=== PATIENT | female | born 1990 | race Hispanic/Latino ===

== ENCOUNTER 2020-01-03 12:09 | Day surgery (SDC) | payer BC ==
[2020-01-03 12:41] VITALS: BMI 48.7
[2020-01-03 12:46] VITALS: BP 133/86; TEMP 98.5
[2020-01-03] MEDS ORDERED: hydrALAZINE 20 MG/ML VIAL SLOW IVP PRN (12:56)
[2020-01-03 13:24] LABS: #Eosinphils 0.1 thou/uL (0.0-0.7); #Lymphocytes 2.5 thou/uL (1.20-3.40); #Monocytes 0.6 thou/uL (0.11-0.59); #Neutrophils 7.9 thou/uL (1.40-6.50); %Basophils 0.4 % (0.0-1.0); %Eosinophils 0.8 % (0.0-10.0); %Lymphocytes 22.4 % (21.0-51.0); %Monocytes 5.5 % (0.0-10.0); %Neutrophils 70.9 % (42.0-75.0); Hemoglobin 12.7 g/dL (12.0-16.0); Mean Corpuscular HGB CONC 33.8 g/dL (32.0-36.0); Mean Corpuscular Hemoglobin 29.5 pg (27.0-31.0); Mean Platelet Volume 8.9 fL (7.4-10.4); Platelet Count 189 thou/uL (130-400); RBC Distribution Width 13.8 % (11.5-14.5); Red Blood Cell (RBC) Count 4.32 mill/uL (4.20-5.40); White Blood Cell (WBC) Count 11.1 thou/uL (4.8-10.8)
[2020-01-03 13:51] LABS: ALT (SGPT) 15 U/L (8-55); AST (SGOT) 15 U/L (5-34); Albumin 3.2 g/dL (3.5-5.0); Alkaline Phosphatase 165 U/L (40-110); Anion Gap 13 mmol/L (10-20); BUN (Urea Nitrogen) 9 mg/dL (7.0-18.7); Bilirubin, Total 0.2 mg/dL (0.2-1.2); Calc. Creatinine Clearance 251 mL/min (70-130); Calcium 8.7 mg/dL (7.8-10.44); Carbon Dioxide 19 mmol/L (22-29); Chloride 109 mmol/L (98-107); Estimated GFR-MDRD Greater than 90; Globulin 3.3 g/dL (2.4-3.5); Glucose 76 mg/dL (70-105); Potassium 3.9 mmol/L (3.5-5.1); Protein, Total 6.5 g/dL (6.0-8.3); Sodium 137 mmol/L (136-145)
[2020-01-03 14:01] LABS: Creatinine, Urine 63.35 mg/dL (47-110)
--- NOTE | 2020-01-04 01:24 | SS ---
DATE OF ADMISSION: 01/03/2020 DATE OF DISCHARGE: 01/03/2020 REGULAR PHYSICIAN: Cody Mina DO, MS EVALUATING PHYSICIAN: Gatito Nails MD CHIEF COMPLAINT: Elevated blood pressures at home. HISTORY OF PRESENT ILLNESS: Ms. Pina is a 29-year-old white G1, P0 with an estimated date of confinement of 01/28/2020, who presents for evaluation of elevated blood pressures after having been seen here by [facility]. The patient states that she had elevated blood pressures in clinic earlier this week and did have some proteinuria at that time. She denies bleeding or ruptured membranes. She also denies associated headache or visual changes. Her care has been with Dr. Mina, and has been reportedly uncomplicated. PAST MEDICAL HISTORY: None. PAST SURGICAL HISTORY: None. CURRENT MEDICATIONS: vitamins. ALLERGIES: NO KNOWN ALLERGIES. SOCIAL HISTORY: Denies tobacco, alcohol, or drug use. FAMILY HISTORY: Unremarkable. REVIEW OF SYSTEMS: Denies nausea, vomiting, fever, chills, ruptured membranes, vaginal bleeding, headache, visual changes, or right upper quadrant pain. PHYSICAL EXAMINATION: VITAL SIGNS: Serial blood pressures in triage are the followin/81, 134/81, 141/79. GENERAL: She is pleasant and in no acute distress. ABDOMEN: Soft, nontender, and gravid. heart rate tracing is reassuring with spontaneous accelerations. No regular contractions were seen. LABORATORY DATA: White count 11.1, hemoglobin and hematocrit 12.7 and 37.6, platelet count 189,000. Chemistries: Sodium 137, potassium 3.9, creatinine 0.61, glucose 76, total bilirubin 0.2, AST and ALT are 15 and 15 respectively. Urine shows total protein of 13 mg/dL with a urine creatinine of 63.35, giving a ratio of 0.21. ASSESSMENT: 1. 36 and 3/7-week intrauterine . 2. No evidence of severe preeclampsia at this time. PLAN: The patient will be sent home. She was given PIH precautions in detail and was told to follow up at [facility] early next week. She voiced understanding of her discharge instructions and was sent home in good condition. Job ID: [id number]
== END 2020-01-03 14:25 | disposition home health service (06) ==
LOC: L&D/OP 12:09
PROVIDERS: ATTEND Obstetrics & Gynecology
DX: O99.89 Other specified diseases and conditions complicating pregnancy, childbirth and the puerperium (principal); R03.0 Elevated blood-pressure reading, without diagnosis of hypertension; Z3A.36 36 weeks gestation of pregnancy
CPT/HCPCS: 36415; 80053; 82570; 84156; 85025; 99282

== ENCOUNTER 2020-01-13 12:30 | Inpatient (IN) | payer BC ==
[~2020-01-13 12:30] MED LIST: Bupivacaine HCl 0.5%/Epinephrine 1:200,000/PF 30 ml Vial ONE; Bupivacaine/Epinephrine 0.25% 30 ML VIAL ONE; Lidocaine 2% MPF 10 ML AMP (For Epidural Use) ONE
[2020-01-13] MEDS ORDERED: hydrALAZINE 20 MG/ML VIAL SLOW IVP PRN ×2 (12:59→13:05)
[2020-01-13] MEDS ORDERED: Carboprost 250 MCG/ML AMP IM PRN (13:05)
[2020-01-13] MEDS ORDERED: Ibuprofen 800 MG TAB PO PRN (13:05)
[2020-01-13] MEDS ORDERED: HYDROcodone/Acetaminophen 5/325 mg Tablet PO PRN ×2 (13:05)
[2020-01-13] MEDS ORDERED: Ondansetron PF 4 MG/2 ML Vial IVP PRN (13:05)
[2020-01-13] MEDS ORDERED: Lidocaine 1% (PF) 30 ML VIAL SC PRN (13:05)
[2020-01-13] MEDS ORDERED: Acetaminophen 500 MG TAB PO PRN (13:05)
[2020-01-13] MEDS ORDERED: Promethazine HCl 25 MG/ML VIAL IM PRN (13:05)
[2020-01-13] MEDS ORDERED: Diphenoxylate HCl/Atropine Tablet PO PRN ×2 (13:05)
[2020-01-13] MEDS ORDERED: Misoprostol 200 MCG TAB PR PRN (13:05)
[2020-01-13] MEDS ORDERED: NS / Oxytocin 40 units/1000ml 1,000 ML IV PRN (13:05)
[2020-01-13] MEDS ORDERED: NS w/ Oxytocin 10 units 500 ML IV SCH (13:15)
[2020-01-13 13:40] VITALS: BMI 49.1
[2020-01-13] MEDS: Lactated Ringer's 1,000 ML IV SCH (14:30)
[2020-01-13 14:32] LABS: Hemoglobin 13.7 g/dL (12.0-16.0); Mean Corpuscular HGB CONC 32.3 g/dL (32.0-36.0); Mean Corpuscular Hemoglobin 28.2 pg (27.0-31.0); Mean Corpuscular Volume 87.2 fL (78.0-98.0); Mean Platelet Volume 9.2 fL (7.4-10.4); Platelet Count 205 thou/uL (130-400); Red Blood Cell (RBC) Count 4.86 mill/uL (4.20-5.40); White Blood Cell (WBC) Count 11.5 thou/uL (4.8-10.8)
[2020-01-13 14:53] LABS: ALT (SGPT) 16 U/L (8-55); AST (SGOT) 15 U/L (5-34); Albumin 3.5 g/dL (3.5-5.0); Alkaline Phosphatase 196 U/L (40-110); Anion Gap 13 mmol/L (10-20); BUN (Urea Nitrogen) 7 mg/dL (7.0-18.7); Bilirubin, Total 0.2 mg/dL (0.2-1.2); Calc. Creatinine Clearance 253 mL/min (70-130); Calcium 9.2 mg/dL (7.8-10.44); Carbon Dioxide 19 mmol/L (22-29); Chloride 107 mmol/L (98-107); Estimated GFR-MDRD Greater than 90; Globulin 3.6 g/dL (2.4-3.5); Glucose 75 mg/dL (70-105); Potassium 4.1 mmol/L (3.5-5.1); Protein, Total 7.1 g/dL (6.0-8.3); Sodium 135 mmol/L (136-145)
[2020-01-13] MEDS: Misoprostol 100 MCG TAB VAG SCH ×3 (14:54→21:52)
[2020-01-13 15:10] LABS: Syphilis Antibody Nonreactive (Nonreactive); Syphilis Antibody Index 0.02 S/CO (<1.00 Non-Reactive)
[2020-01-13 15:11] LABS: HBSAg Index 0.18 S/CO (0-0.99); Hep B Surf Ag Non-Reactive S/CO (NonReactive)
[2020-01-13 15:45] LABS: Creatinine, Urine 99.33 mg/dL (47-110)
--- NOTE | 2020-01-13 15:47 | PDOC.LDHP ---
Labor and Delivery H&P Chief complaint: other (Elevated BP) HPI: 29 y/o G1 at 37w6d, patient of Dr. Mina, presents with elevated BPs at home in the mild range. Denies CLAUDIO, vision changes, RUQ pain, VB, LOF, ctx, or other concerns. +FM. ROS neg for HEENT, CV, pulm, GI, , neuro, psych, skin, musculoskeletal, or constitutional symptoms other than mentioned above. OB History Details: First Current complications: none Past Medical History: None Current medications: pre- vitamins Previous surgical history: none Allergies/Adverse Reactions: Allergies Allergy/AdvReac Type Severity Reaction Status Date / Time No Known Drug Allergies Allergy Verified 01/13/20 13:14 Social history: none - Physical Exam Vital signs reviewed and normal: yes Abnormal vital signs: mild range BPs General: NAD, resting Lungs: nonlabored breathing Abdomen: gravid Extremeties: no edema FHT: category 1 (135, mod variability, + accels, no decels) [place] contractions every: 2 mins - Vaginal Exam cm dilated: 1 Effacement: 0% Station: -3 - OB Labs Blood type: A RH: positive GBS: negative - Assessment L&D Assessment: medically indicated induction - Plan Plan: admit to L&D, cervical ripening, labor augmentation if indicated, informed consent obtained, anesthesia consult for pain management (if desired)
--- NOTE | 2020-01-13 15:51 | PDOC.BPN ---
- Brief Progress Note PIH labs normal. Protein creatinine ratio 0.24.
[2020-01-14] MEDS: Butorphanol Tartrate 1 MG/ML VIAL SLOW IVP PRN ×2 (03:03→06:01)
[2020-01-14] MEDS: Lactated Ringer's 1,000 ML IV SCH ×5 (03:05→17:47)
[2020-01-14] MEDS: Misoprostol 100 MCG TAB VAG SCH ×5 (05:23→23:28)
--- NOTE | 2020-01-14 08:21 | PDOC.LDPN ---
Labor & Delivery Progress Note - Subjective Subjective: comfortable - Objective Vital signs reviewed and normal: yes General: resting Uterine fundus: non tender Dilation: 3 Effacement: 50% Station: -2 FHT: category 1 AROM: clear fluid - Assessment (1) 37 weeks gestation of Code(s): Z3A.37 - 37 WEEKS GESTATION OF Current Visit: Yes Status : Acute (2) Gestational hypertension Code(s): O13.9 - GESTATIONAL HTN W/O SIGNIFICANT PROTEINURIA, UNSP TRIMESTER Current Visit: Yes Status: Acute Plan: continue plan of care -: AROM, pitocin, FHT reassuring BP mild to normal range
[2020-01-14] MEDS ORDERED: Fentanyl 4 mcg/Bup 0.1% Cadd 100 ML ONE ×3 (08:25→16:56)
[2020-01-14] MEDS ORDERED: diphenhydrAMINE 50 MG/ML VIAL IVP PRN ×3 (10:51→22:35)
[2020-01-14] MEDS ORDERED: Acetaminophen 325 MG TAB PO PRN ×2 (10:51→11:14)
[2020-01-14] MEDS ORDERED: Naloxone HCl 0.4 mg/ml Vial IVP PRN ×6 (10:51→22:35)
[2020-01-14] MEDS ORDERED: EPHEDRINE 25 MG/5 ML SYRINGE SLOW IVP PRN ×2 (10:51→11:14)
[2020-01-14] MEDS ORDERED: Lactated Ringer's 500 ML IV PRN ×2 (10:51→11:14)
[2020-01-14] MEDS ORDERED: Promethazine HCl 25 MG/ML VIAL IM PRN ×3 (10:51→22:35)
[2020-01-14] MEDS ORDERED: Ondansetron PF 4 MG/2 ML Vial IVP PRN ×3 (10:51→22:35)
[2020-01-14] MEDS ORDERED: Fentanyl 4 mcg/Bupivacaine 0.1% Cassette 100 ML EPIDURAL SCH ×2 (11:00→11:15)
[2020-01-14] MEDS ORDERED: Communication Order-Pharmacy FS SCH ×3 (11:00→22:45)
--- NOTE | 2020-01-14 12:47 | PDOC.LDPN ---
Labor & Delivery Progress Note - Subjective Subjective: comfortable - Objective Vital signs reviewed and normal: yes General: resting Dilation: 4 Effacement: 75% Station: -2 IUPC placed: yes FSE placed: yes - Assessment (1) 37 weeks gestation of Code(s): Z3A.37 - 37 WEEKS GESTATION OF Current Visit: Yes Status : Acute (2) Gestational hypertension Code(s): O13.9 - GESTATIONAL HTN W/O SIGNIFICANT PROTEINURIA, UNSP TRIMESTER Current Visit: Yes Status: Acute Plan: continue plan of care -: A/P: IOL for GHTN. Transitioning to active labor. FHT with minimal variability noted prior to FSE placed, will continue to monitor closely.
--- NOTE | 2020-01-14 16:33 | PDOC.LDPN ---
Labor & Delivery Progress Note - Subjective Subjective: comfortable - Objective Vital signs reviewed and normal: yes General: resting Dilation: 4 Effacement: 75% Station: -2 FHT: category 1 - Assessment (1) 37 weeks gestation of Code(s): Z3A.37 - 37 WEEKS GESTATION OF Current Visit: Yes Status : Acute (2) Gestational hypertension Code(s): O13.9 - GESTATIONAL HTN W/O SIGNIFICANT PROTEINURIA, UNSP TRIMESTER Current Visit: Yes Status: Acute Plan: continue plan of care -: A/P: IOL for GHTN, pitocin was turned off for NRFHT/late decelerations about an hour ago. FHT cat 1 at this time. CTX are not adequate, irregular pattern and inadequate MVUs. Discussed 1CS for NRFHT if pitocin has to be turned off again for NRFHT.
[2020-01-14] MEDS ORDERED: Azithromycin 500 MG VIAL ONE (21:32)
[2020-01-14] MEDS ORDERED: Bicitra 30 ML UDCUP ONE (21:32)
[2020-01-14] MEDS ORDERED: Oxytocin 10 UNITS/ML VIAL ONE (21:53)
[2020-01-14] MEDS ORDERED: Ketorolac Tromethamine 30 MG/ML VIAL ONE (21:53)
[2020-01-14] MEDS ORDERED: PHENYLEPHRINE-NS 100 MCG/ML 10 ML SYRINGE ONE (21:53)
[2020-01-14] MEDS ORDERED: Dexamethasone 4 mg/ml Vial ONE (21:53)
[2020-01-14] MEDS ORDERED: MORPHINE 5 MG/10 ML PF VIAL ONE (21:53)
[2020-01-14] MEDS ORDERED: Ondansetron PF 4 MG/2 ML Vial ONE (21:53)
[2020-01-14] MEDS ORDERED: Bupivacaine PF 0.5% 30 ML VIAL ONE (21:56)
[2020-01-14] MEDS ORDERED: Lidocaine 2% 10 ML INJ ONE (21:56)
--- NOTE | 2020-01-14 22:05 | PDOC.EVN ---
Event Note - Event Note Event Note: Pt with no significant cervical filter changer 8hours, pt request 1CS and risk and benefits reviewed. To OR.
[2020-01-14] MEDS ORDERED: diphenhydrAMINE 50 MG/ML VIAL ONE (22:10)
[2020-01-14] MEDS ORDERED: Promethazine HCl 25 MG/ML VIAL ONE (22:19)
[2020-01-14] MEDS ORDERED: Naloxone HCl 0.4 mg/ml Vial IV PRN (22:35)
[2020-01-14] MEDS ORDERED: L&D-Morphine 4 MG/ML VIAL SLOW IVP PRN (22:35)
[2020-01-14] MEDS ORDERED: Meperidine HCl/PF 25 MG/ML VIAL SLOW IVP PRN (22:35)
[2020-01-14] MEDS ORDERED: Ondansetron HCl/PF 4 MG/2 ML Vial IVP PRN (22:35)
[2020-01-14] MEDS ORDERED: Promethazine HCl 25 MG SUPP PR PRN (22:35)
[2020-01-14] MEDS ORDERED: HYDROmorphone 2 MG/ML VIAL SLOW IVP PRN (22:35)
[2020-01-15] MEDS ORDERED: Meperidine HCl/PF 25 MG/ML VIAL ONE (00:39)
[2020-01-15] MEDS ORDERED: Lanolin Ointment 7 GM TUBE TOP PRN (00:57)
[2020-01-15] MEDS ORDERED: hydrALAZINE 20 MG/ML VIAL SLOW IVP PRN (00:57)
[2020-01-15] MEDS ORDERED: Bisacodyl 10 MG SUPP PR PRN (00:57)
[2020-01-15] MEDS ORDERED: Ondansetron PF 4 MG/2 ML Vial IVP PRN (00:57)
[2020-01-15] MEDS ORDERED: Simethicone Chewable 80 MG TAB PO PRN (00:57)
[2020-01-15] MEDS ORDERED: diphenhydrAMINE 25 MG CAP PO PRN (00:57)
--- NOTE | 2020-01-15 02:53 | OP ---
DATE OF PROCEDURE: 01/14/2020 PREOPERATIVE DIAGNOSES: 1. A 29-year-old G1 at 37+ weeks with gestational hypertension. 2. Induction of labor with arrest of dilation at 5 cm. 3. Persistent occiput posterior position. POSTOPERATIVE DIAGNOSES: 1. A 29-year-old G1 at 37+ weeks with gestational hypertension. 2. Induction of labor with arrest of dilation at 5 cm. 3. Persistent occiput posterior position. PROCEDURE PERFORMED: Primary low transverse section. SERVICE OFFICER: Amadou Roth MD ANESTHESIA: Epidural. COMPLICATIONS: None. ESTIMATED BLOOD LOSS: 500 mL. OPERATIVE FINDINGS: 1. Low-transverse hysterotomy without extension. 2. Vigorous female infant delivered from OP position. Apgars pending. Weight 7 pounds 11 ounces to [facility]. 3. Normal-appearing placenta with 3-vessel cord. 4. Fundus firm after delivery of the infant. 5. Surgical site hemostatic. 6. Normal-appearing tubes and ovaries bilaterally. DESCRIPTION OF PROCEDURE: The patient was taken back to the OR with IV fluids running in epidural and Amezquita catheters that were previously placed. The patient was placed in dorsal supine position with a left lateral tilt. Ancef and azithromycin IV were administered for prophylactic antibiotics. The abdomen was prepped and draped in normal fashion for section. Surgeons were gowned and gloved. Anesthesia was tested and found to be adequate. A Pfannenstiel skin incision was made with a scalpel. The skin incision was carried down through the subcutaneous tissue to the fascia. Once the fascia was reached, it was incised in the midline and extended superolaterally using curved Saunders scissors. Sebastián clamps were placed at the superior border of the fascia, which was sharply and bluntly dissected off the rectus abdominis muscles. In similar fashion, the Sebastián clamps were placed at the inferior border of the fascia, which was dissected down towards the pubic symphysis. The rectus muscles were then bluntly in the midline. The peritoneum was bluntly entered and stretched laterally. An Genaro O retractor was placed into the peritoneal cavity for retraction, visualization, and protection of the wound. A bladder flap was created, and the bladder was dissected away from the planned hysterotomy site. A low-transverse hysterotomy was made with a scalpel. It was extended superolaterally using the Serrano maneuver. The infant was then delivered without difficulty from occiput posterior position. The nose and mouth were suctioned. The cord was doubly clamped and cut. The was handed off to special care nurse in attendance. Cord blood was collected. The placenta was delivered. The uterus was exteriorized, massaged to firm and cleared of clot and debris. The uterus was then returned to the abdominal cavity. The hysterotomy was inspected and no extensions were noted. The hysterotomy was closed with Monocryl suture in a running locked fashion. A second layer of closure was completed across the length of the hysterotomy with hemostasis noted. After the hysterotomy was closed, it was irrigated and suctioned dry. No areas of bleeding were noted. The Genaro O retractor was then removed from the abdominal cavity. The rectus fascia and muscles were dried and inspected, and no areas of bleeding were noted. The rectus fascia was then reapproximated from corner to corner and tied separately in the midline. The subcutaneous tissue was then irrigated and dry. Any small areas of bleeding were controlled with Bovie cauterization. Subcutaneous layer was reapproximated with plain gut suture. The skin was closed with 4-0 Monocryl and dressed with Dermabond dressing. The fundus was noted to be firm at the end of the case. The patient tolerated the procedure well. There were no complications, and the counts were correct. Job ID: [id number]
--- NOTE | 2020-01-15 03:19 | OP ---
DATE OF PROCEDURE: 01/14/2020 PRIMARY OB: Dr. Cody Mnia. This just serves as a documentation that I was the waiter/waitress first class to Dr. Mina for primary on Laya Pina. Please refer to her operative note for complete details. Job ID: [id number]
[2020-01-15] MEDS: Ketorolac Tromethamine 30 MG/ML VIAL IVP SCH ×3 (05:07→14:54)
[2020-01-15 07:20] LABS: Hemoglobin 12.3 g/dL (12.0-16.0); Mean Corpuscular HGB CONC 32.7 g/dL (32.0-36.0); Mean Corpuscular Hemoglobin 28.7 pg (27.0-31.0); Mean Corpuscular Volume 87.8 fL (78.0-98.0); Mean Platelet Volume 9.7 fL (7.4-10.4); Platelet Count 166 thou/uL (130-400); Red Blood Cell (RBC) Count 4.28 mill/uL (4.20-5.40); White Blood Cell (WBC) Count 17.6 thou/uL (4.8-10.8)
[2020-01-15] MEDS ORDERED: Adacel (T-DAP) 0.5 ML SYRINGE IM ONE (09:00)
[2020-01-15] MEDS: Docusate Calcium (SURFAK) 240 MG CAP PO SCH ×2 (09:27→20:44)
[2020-01-15] MEDS: Prenatal Vitamin 1 TAB PO SCH (09:27)
[2020-01-15] MEDS: Ferrous Sulfate 325 MG TAB PO SCH ×2 (10:11→20:41)
[2020-01-15] MEDS ORDERED: HYDROcodone/Acetaminophen 5/325 mg Tablet PO PRN ×2 (10:45)
--- NOTE | 2020-01-15 13:17 | PDOC.PP ---
Post Progress Note Post Day #: POD1 Subjective: POD 1 Doing well, minimal pain, no concerns. PO intake tolerated: yes Flatus: yes Ambulation: yes Vital Signs (12 hours) Temp Pulse Resp BP Pulse Ox 01/15/20 11:25 98.5 F 104 H 20 126/56 L 01/15/20 08:08 99.4 F 104 H 20 118/75 95 01/15/20 04:14 98.7 F 100 16 137/86 94 L 01/15/20 02:15 99.1 F 100 16 124/79 96 Weight Weight 260 lb - Physical Examination General: NAD Respiratory: non-labored breathing Abdominal: no distention Skin: CS incision dry & intact, no rash Psychiatric: A&Ox3, normal affect Result Diagrams: 01/15/20 06:45 01/13/20 14:13 Additional Labs: Post Labs Blood Type A POSITIVE 01/13/20 16:16 Hep Bs Antigen Non-Reactive S/CO (NonReactive) 01/13/20 14:13 (1) 37 weeks gestation of Code(s): Z3A.37 - 37 WEEKS GESTATION OF Status: Acute (2) Gestational hypertension Code(s): O13.9 - GESTATIONAL HTN W/O SIGNIFICANT PROTEINURIA, UNSP TRIMESTER Status: Acute - Assessment/Plan POD1 doing well, possible DC tomorrow.
[2020-01-15] MEDS: Ibuprofen 800 MG TAB PO SCH (20:45)
[2020-01-16] MEDS: Ibuprofen 800 MG TAB PO SCH ×2 (05:55→13:30)
[2020-01-16] MEDS ORDERED: Ibuprofen 800 MG TAB PO SCH (06:00)
[2020-01-16] MEDS: Ferrous Sulfate 325 MG TAB PO SCH (07:16)
[2020-01-16] MEDS: Prenatal Vitamin 1 TAB PO SCH (08:46)
[2020-01-16] MEDS: Docusate Calcium (SURFAK) 240 MG CAP PO SCH (08:46)
--- NOTE | 2020-01-16 08:54 | PDOC.PP ---
Post Progress Note Post Day #: 2 Subjective: doing well, minimal pain, request abd binder for support, requests DC home PO intake tolerated: yes Flatus: yes Ambulation: yes Vital Signs (12 hours) Temp Pulse Resp BP Pulse Ox 01/16/20 08:15 98.0 F 99 20 115/57 L 97 01/16/20 04:15 97.7 F 94 16 120/65 94 L 01/16/20 00:04 98.3 F 100 16 138/76 97 01/15/20 21:04 98.3 F 97 16 105/57 L 99 Weight Weight 260 lb - Physical Examination General: NAD Respiratory: non-labored breathing Abdominal: no distention Skin: CS incision dry & intact Neurological: no gross focal deficits Psychiatric: A&Ox3, normal affect Result Diagrams: 01/15/20 06:45 01/13/20 14:13 Additional Labs: Post Labs Blood Type A POSITIVE 01/13/20 16:16 Hep Bs Antigen Non-Reactive S/CO (NonReactive) 01/13/20 14:13 (1) 37 weeks gestation of Code(s): Z3A.37 - 37 WEEKS GESTATION OF Status: Acute (2) Gestational hypertension Code(s): O13.9 - GESTATIONAL HTN W/O SIGNIFICANT PROTEINURIA, UNSP TRIMESTER Status: Acute - Assessment/Plan POD2 doing well, BP normal range. NO si/sx worsening PIH. Plan for DC today. Pain med use post op reviewed.
[2020-01-16 17:41] VITALS: BP 130/70; TEMP 99
== END 2020-01-16 18:08 | disposition home or self-care (01) | DRG 788 ==
LOC: L&D/OP 12:30 → L&D 17:21 → 3SE 01-15 01:52
PROVIDERS: ADMIT Obstetrics & Gynecology; ATTEND Obstetrics & Gynecology
PROC: 10D00Z1 Extraction of Products of Conception, Low, Open Approach (ICD-10-PCS; principal; 2020-01-14)
DX: O13.4 Gestational [pregnancy-induced] hypertension without significant proteinuria, complicating childbirth (principal); Z3A.37 37 weeks gestation of pregnancy; Z37.0 Single live birth; O76 Abnormality in fetal heart rate and rhythm complicating labor and delivery; O64.0XX0 Obstructed labor due to incomplete rotation of fetal head, not applicable or unspecified; O62.1 Secondary uterine inertia
CPT/HCPCS: 36415; 51702; 76815; 80053; 82570; 84156; 85027; 86780; 86850; 86900; 86901; 87340; 99285; J0456; J0595; J0670; J0690; J1100; J1200; J1885; J2001; J2175; J2274; J2405; J2550; J2590; S0020

== ENCOUNTER 2020-11-20 14:00 | Outpatient (CLI) | payer BC ==
[2020-11-20 15:53] LABS: Hemoglobin 13.2 g/dL (12.0-15.5); Mean Corpuscular HGB CONC 31.9 g/dL (32.0-36.0); Mean Corpuscular Hemoglobin 27.6 pg (27.0-33.0); Mean Corpuscular Volume 86.4 fl (81.6-98.3); Platelet Count 272 10x3/uL (150-450); RBC Distribution Width 14.1 % (11.5-14.5); Red Blood Cell (RBC) Count 4.79 10x6/uL (3.90-5.03); White Blood Cell (WBC) Count 9.3 10x3/uL (3.5-10.5)
[2020-11-20 16:07] LABS: BHCG - Serum Negative (NEGATIVE); Pregs Control Background? CLEAR/WHITE (CLR/WHITE); Pregs Control Bar Appear? YES (CONTROL BAR)
[2020-11-20 16:11] LABS: Anion Gap 14 mmol/L (10-20); BUN (Urea Nitrogen) 9 mg/dL (7.0-18.7); Calc. Creatinine Clearance 0 mL/min (70-130); Calcium 9.2 mg/dL (7.8-10.44); Carbon Dioxide 24 mmol/L (22-29); Chloride 107 mmol/L (98-107); Glucose 114 mg/dL (70-105); Potassium 4.2 mmol/L (3.5-5.1); Sodium 141 mmol/L (136-145)
[2020-11-20 16:40] LABS: PTT 29.6 sec (22.0-33.0); Prothrombin Time 10.9 sec (9.5-12.1)
[2020-11-21 03:28] LABS: SARS-CoV-2 PCR by NAA Not Detected (NotDetected)
== END 2020-11-20 14:01 | disposition home or self-care (01) ==
LOC: LABBT 14:00
PROVIDERS: ATTEND Internal Medicine Cardiovascular Disease
DX: Z01.818 Encounter for other preprocedural examination (principal); I48.91 Unspecified atrial fibrillation; Z20.822 Contact with and (suspected) exposure to COVID-19
CPT/HCPCS: 80048; 84703; 85027; 85610; 85730; 87635; 93005; 93010; U0003; U0005

== ENCOUNTER 2020-11-25 05:49 | Observation (INO) | payer BC ==
[2020-11-24 10:04] VITALS: BMI 44.1
[2020-11-25] MEDS ORDERED: Heparin 10,000 UNITS/ 10 ML VIAL ONE ×2 (06:50→08:44)
[2020-11-25] MEDS ORDERED: Phenylephrine 10 MG/ML VIAL ONE (07:01)
[2020-11-25] MEDS ORDERED: SUGAMMADEX SODIUM 500 MG/5 ML VIAL ONE (07:01)
[2020-11-25] MEDS ORDERED: Heparin 25,000 units/D5W 500 ML ONE (07:36)
[2020-11-25] MEDS ORDERED: Lidocaine 1% PF 5 ML VIAL ONE (07:45)
[2020-11-25] MEDS ORDERED: PHENYLEPHRINE-NS 100 MCG/ML 10 ML SYRINGE ONE (07:45)
[2020-11-25] MEDS ORDERED: PROPOFOL 200 MG/20 ML VIAL ONE (07:45)
[2020-11-25] MEDS ORDERED: Rocuronium Bromide 10 MG/ML (10ML VIAL) ONE (07:45)
[2020-11-25] MEDS ORDERED: Dexamethasone 20 MG/5 ML VIAL ONE (07:45)
[2020-11-25] MEDS ORDERED: Fentanyl 100 MCG/2 ML VIAL ONE (08:37)
[2020-11-25] MEDS ORDERED: Isoproterenol 0.2 MG/1 ML AMP ONE (08:45)
[2020-11-25] MEDS ORDERED: Protamine Sulfate 50 MG/5 ML VIAL ONE (11:01)
[2020-11-25] MEDS ORDERED: Ondansetron PF 4 MG/2 ML Vial ONE (11:15)
[2020-11-25] MEDS ORDERED: Acetaminophen/Codeine 30-300mg Tablet PO PRN ×2 (12:30)
[2020-11-25] MEDS ORDERED: Ketorolac Tromethamine 30 MG/ML VIAL IVP PRN (12:31)
[2020-11-25] MEDS ORDERED: Acetaminophen 325 MG TAB ONE (13:04)
[2020-11-25] MEDS: Acetaminophen 325 MG TAB PO PRN ×2 (13:07→21:28)
[2020-11-25] MEDS ORDERED: Acetaminophen/Codeine 30-300mg Tablet ONE (16:01)
[2020-11-25] MEDS: Apixaban 5 MG TAB PO SCH (21:29)
[2020-11-25] MEDS: Sucralfate 1 GM TAB PO SCH (21:49)
[2020-11-26] MEDS: Sucralfate 1 GM TAB PO SCH ×3 (02:09→12:28)
[2020-11-26] MEDS: Apixaban 5 MG TAB PO SCH (08:51)
[2020-11-26] MEDS: Acetaminophen 325 MG TAB PO PRN (10:59)
[2020-11-26 12:52] VITALS: BP 129/72; TEMP 98.3
== END 2020-11-26 13:02 | disposition home or self-care (01) ==
LOC: SDC 05:49 → 2SW 11:19
PROVIDERS: ADMIT Internal Medicine Cardiovascular Disease; ATTEND Internal Medicine Cardiovascular Disease
PROC: 02583ZZ Destruction of Conduction Mechanism, Percutaneous Approach (ICD-10-PCS; principal; 2020-11-25)
PROC: 02K83ZZ Map Conduction Mechanism, Percutaneous Approach (ICD-10-PCS; 2020-11-25)
PROC: 4A023FZ Measurement of Cardiac Rhythm, Percutaneous Approach (ICD-10-PCS; 2020-11-25)
PROC: 4A0234Z Measurement of Cardiac Electrical Activity, Percutaneous Approach (ICD-10-PCS; 2020-11-25)
DX: I48.0 Paroxysmal atrial fibrillation (principal); I48.92 Unspecified atrial flutter; I10 Essential (primary) hypertension; E66.01 Morbid (severe) obesity due to excess calories; Z68.41 Body mass index [BMI] 40.0-44.9, adult; Z79.01 Long term (current) use of anticoagulants; Z79.899 Other long term (current) drug therapy
CPT/HCPCS: 76942; 85347; 93005; 93010; 93613; 93623; 93655; 93656; 93662; C1732; G0378; J1100; J1644; J2370; J2405; J2704; J2720; J3010

== ENCOUNTER 2021-08-27 11:02 | Outpatient (CLI) | payer BC ==
[2021-08-27 12:13] LABS: Hemoglobin 12.7 g/dL (12.0-15.5); Mean Corpuscular HGB CONC 30.4 g/dL (32.0-36.0); Mean Corpuscular Hemoglobin 25.6 pg (27.0-33.0); Mean Corpuscular Volume 84.3 fl (81.6-98.3); Mean Platelet Volume 10.2 fl (7.4-10.4); Platelet Count 278 10x3/uL (150-450); RBC Distribution Width 14.6 % (11.5-14.5); Red Blood Cell (RBC) Count 4.96 10x6/uL (3.90-5.03); White Blood Cell (WBC) Count 7.9 10x3/uL (3.5-10.5)
[2021-08-27 12:19] LABS: PTT 30.2 sec (22.0-33.0); Prothrombin Time 11.2 sec (9.5-12.1)
[2021-08-27 12:45] LABS: Anion Gap 15 mmol/L (10-20); BUN (Urea Nitrogen) 10 mg/dL (7.0-18.7); Calc. Creatinine Clearance 0 mL/min (70-130); Calcium 9.2 mg/dL (7.8-10.44); Carbon Dioxide 24 mmol/L (22-29); Chloride 105 mmol/L (98-107); Glucose 91 mg/dL (70-105); Potassium 4.5 mmol/L (3.5-5.1); Sodium 139 mmol/L (136-145)
[2021-08-28 00:16] LABS: SARS-CoV-2 PCR by NAA DETECTED (NotDetected)
== END 2021-08-27 11:03 | disposition home or self-care (01) ==
LOC: LABBT 11:02
PROVIDERS: ATTEND Internal Medicine Cardiovascular Disease
DX: Z01.812 Encounter for preprocedural laboratory examination (principal); I48.0 Paroxysmal atrial fibrillation; U07.1 COVID-19
CPT/HCPCS: 80048; 85027; 85610; 85730; U0003; U0005

== ENCOUNTER 2021-09-13 17:30 | Outpatient (CLI) | payer BC | END 2021-09-13 17:31 | disposition home or self-care (01) | LOC: SLEEPLAB 17:30 | PROVIDERS: ATTEND Family Medicine | DX: G47.33 Obstructive sleep apnea (adult) (pediatric) (principal); R53.83 Other fatigue; R51.9 Headache, unspecified; I48.0 Paroxysmal atrial fibrillation; I51.9 Heart disease, unspecified; E66.9 Obesity, unspecified; Z68.41 Body mass index [BMI] 40.0-44.9, adult | CPT/HCPCS: 95806 ==

== ENCOUNTER 2021-09-17 14:56 | Outpatient (CLI) | payer BC ==
[2021-09-17 16:57] LABS: Hemoglobin 12.2 g/dL (12.0-15.5); Mean Corpuscular HGB CONC 31.2 g/dL (32.0-36.0); Mean Corpuscular Hemoglobin 25.8 pg (27.0-33.0); Mean Corpuscular Volume 82.7 fl (81.6-98.3); Mean Platelet Volume 10.5 fl (7.4-10.4); Platelet Count 272 10x3/uL (150-450); RBC Distribution Width 14.6 % (11.5-14.5); Red Blood Cell (RBC) Count 4.73 10x6/uL (3.90-5.03); White Blood Cell (WBC) Count 8.9 10x3/uL (3.5-10.5)
[2021-09-17 17:08] LABS: INR-International Normal Ratio 0.9; PTT 27.3 sec (22.0-33.0); Prothrombin Time 10.5 sec (9.5-12.1)
[2021-09-17 17:14] LABS: Anion Gap 14 mmol/L (10-20); BUN (Urea Nitrogen) 12 mg/dL (7.0-18.7); Calc. Creatinine Clearance 0 mL/min (70-130); Calcium 8.6 mg/dL (7.8-10.44); Carbon Dioxide 24 mmol/L (22-29); Chloride 105 mmol/L (98-107); Glucose 106 mg/dL (70-105); Potassium 4.3 mmol/L (3.5-5.1); Sodium 139 mmol/L (136-145)
== END 2021-09-17 14:57 | disposition home or self-care (01) ==
LOC: LABBT 14:56
PROVIDERS: ATTEND Internal Medicine Cardiovascular Disease
DX: Z01.818 Encounter for other preprocedural examination (principal); Z51.81 Encounter for therapeutic drug level monitoring; I48.0 Paroxysmal atrial fibrillation; I51.9 Heart disease, unspecified; Z79.01 Long term (current) use of anticoagulants
CPT/HCPCS: 80048; 85027; 85610; 85730; 93005; 93010

== ENCOUNTER 2021-09-22 05:52 | Day surgery (SDC) | payer BC ==
[2021-09-20 11:05] VITALS: BMI 47.4
[2021-09-22] MEDS ORDERED: Heparin 10,000 UNITS/ 10 ML VIAL ONE (06:47)
[2021-09-22] MEDS ORDERED: Heparin 25,000 units/D5W 500 ML ONE (06:47)
[2021-09-22] MEDS ORDERED: Protamine Sulfate 50 MG/5 ML VIAL ONE (06:47)
[2021-09-22] MEDS ORDERED: Fentanyl 250 MCG/5 ML VIAL ONE (06:49)
[2021-09-22] MEDS ORDERED: Lidocaine 1% PF 5 ML VIAL ONE (07:39)
[2021-09-22] MEDS ORDERED: PHENYLEPHRINE-NS 100 MCG/ML 10 ML SYRINGE ONE (07:39)
[2021-09-22] MEDS ORDERED: Dexamethasone 20 MG/5 ML VIAL ONE (07:39)
[2021-09-22] MEDS ORDERED: PROPOFOL 200 MG/20 ML VIAL ONE (07:39)
[2021-09-22] MEDS ORDERED: Ketorolac Tromethamine 30 MG/ML VIAL ONE (07:39)
[2021-09-22] MEDS ORDERED: Ondansetron PF 4 MG/2 ML Vial ONE (07:39)
[2021-09-22] MEDS ORDERED: Rocuronium Bromide 10 MG/ML (10ML VIAL) ONE (07:39)
[2021-09-22] MEDS ORDERED: GLYCOPYRROLATE/PF 0.2 MG/ML VIAL ONE (07:39)
[2021-09-22] MEDS ORDERED: Isoproterenol 0.2 MG/1 ML AMP ONE (08:19)
[2021-09-22] MEDS ORDERED: SUGAMMADEX SODIUM 200 MG/2 ML VIAL ONE (10:31)
[2021-09-22] MEDS ORDERED: Ketorolac Tromethamine 30 MG/ML VIAL IVP PRN (10:39)
[2021-09-22] MEDS ORDERED: Potassium Chloride 20 MEQ TAB PO PRN (10:39)
[2021-09-22] MEDS ORDERED: Furosemide 40 MG TAB PO PRN (10:39)
[2021-09-22] MEDS ORDERED: Sucralfate 1 GM TAB PO SCH (11:30)
== END 2021-09-22 15:27 | disposition home or self-care (01) ==
LOC: SDC 05:52
PROVIDERS: ATTEND Internal Medicine Cardiovascular Disease
PROC: B244ZZZ Ultrasonography of Right Heart (ICD-10-PCS; principal; 2021-09-22)
PROC: 02K83ZZ Map Conduction Mechanism, Percutaneous Approach (ICD-10-PCS; principal; 2021-09-22)
PROC: 4A0234Z Measurement of Cardiac Electrical Activity, Percutaneous Approach (ICD-10-PCS; principal; 2021-09-22)
PROC: 02583ZZ Destruction of Conduction Mechanism, Percutaneous Approach (ICD-10-PCS; principal; 2021-09-22)
PROC: 4A023FZ Measurement of Cardiac Rhythm, Percutaneous Approach (ICD-10-PCS; principal; 2021-09-22)
DX: I48.0 Paroxysmal atrial fibrillation (principal); I48.92 Unspecified atrial flutter; I11.9 Hypertensive heart disease without heart failure; E66.01 Morbid (severe) obesity due to excess calories; Z68.42 Body mass index [BMI] 45.0-49.9, adult; Z79.01 Long term (current) use of anticoagulants; Z79.899 Other long term (current) drug therapy
CPT/HCPCS: 85347; 93005; 93613; 93623; 93656; 93662; C1732; C1759; C1776; C1884; J1100; J1644; J1885; J2405; J2704; J2720; J3010; J3490